=== PATIENT | male | born 1980 | race Caucasian/White ===

== ENCOUNTER → 2019-04-09 | Outpatient (CLI) | payer OTHER ==
--- NOTE | 2019-04-09 18:08 | EST ---
EXERCISE STRESS DATE OF STUDY: 04/09/2019 AGE: 38 SEX: Male. HT: 70 WT: 240 PROTOCOL: Carter STAGE: 4 DURATION OF EXERCISE: 10:00 HEART RATE REST: 65 BLOOD PRESSURE REST: 130/96 MAXIMUM HEART RATE ACHIEVED: 156 MAXIMUM BLOOD PRESSURE: 162/78 85% MPHR: 154 100% MPHR: 181 METS: 11.7 INDICATIONS: Chest pain. CLINICAL INFORMATION: STRESS DATA: Pre-testing physical examination showed heart rate of 60, blood pressure 130/96 mmHg. Baseline EKG showed sinus rhythm. The patient exercised on the treadmill per Carter protocol for a total of 10 minutes and achieved 12 METS. Max heart rate was 156, which is about 86% of maximum predicted heart rate. Maximum blood pressure was 162/78 mmHg. Clinically the patient did not have any symptoms of chest pain or discomfort, and the EKG did not show any significant ST or T-wave abnormalities concerning for ischemia. CONCLUSION: 1. Excellent exercise tolerance. 2. Normal EKG in response to exercise. 3. Essentially normal stress test for the patient. MMODL / IJN: [id number] /
== END | disposition home or self-care (01) ==
LOC: RADNMMAIN 08:45
PROVIDERS: ATTEND Family Medicine
DX: R07.89 Other chest pain (principal)
CPT/HCPCS: 93017

== ENCOUNTER 2021-11-27 15:04 | Emergency (ER) | payer BC, OTHER ==
[2021-11-27 15:53] VITALS: RESP 18; TEMP 98.3
--- NOTE | 2021-11-27 18:23 | ED ---
URI HPI - General Chief Complaint: Upper Respiratory Infection Stated Complaint: covid+,low oxygen Time Seen by Provider: 11/27/21 17:31 Source: patient Mode of arrival: ambulatory Limitations: no limitations - History of Present Illness Initial Comments: 41 year-old male patient presents to the emergency department for evaluation of decreased oxygen saturation. He started having upper respiratory symptoms on and had a positive home COVID test on Sunday. States that his oxygen saturation was decreasing to around 89% at home. His physician recommended he come in for further evaluation and possible antibody infusion. Patient states he has been having some shortness of breath. Reports cough. Denies any nausea, vomiting, or diarrhea. Denies any significant fever. He has been vaccinated and did receive a booster shot. Patient denies any recent rash, chest pain, abdominal pain, constipation, back pain, numbness, tingling, dizziness, weakn ess, hematuria, dysuria, urinary urgency, urinary frequency, headache, visual changes, or any other complaints. - Related Data Allergies Allergy/AdvReac Type Severity Reaction Status Date / Time No Known Allergies Allergy Verified 11/27/21 15:53 Review of Systems ROS Statement: Those systems with pertinent positive or pertinent negative responses have been documented in the HPI. ROS Other: All systems not noted in ROS Statement are negative. Past Medical History Past Medical History: Hypertension History of Any Multi-Drug Resistant Organisms: None Reported Additional Past Surgical History / Comment(s): tongue reattachment Past Psychological History: No Psychological Hx Reported Smoking Status: Current every day smoker Past Alcohol Use History: None Reported Past Drug Use History: None Reported General Exam Limitations: no limitations General appearance: alert, in no apparent distress, other (This is a well- developed, well-nourished adult male in no acute distress.) Eye exam: Present: normal appearance, PERRL, EOMI. Absent: scleral icterus, conjunctival injection, periorbital swelling ENT exam: Present: normal exam, normal oropharynx, mucous membranes moist Respiratory exam: Present: normal lung sounds bilaterally. Absent: respiratory distress, wheezes, rales, rhonchi, stridor Cardiovascular Exam: Present: regular rate, normal rhythm, normal heart sounds. Absent: systolic murmur, diastolic murmur, rubs, gallop, clicks GI/Abdominal exam: Present: soft, normal bowel sounds. Absent: distended, tenderness, guarding, rebound, rigid Neurological exam: Present: alert, oriented X3, CN II-XII intact Psychiatric exam: Present: normal affect, normal mood Skin exam: Present: warm, dry, intact, normal color. Absent: rash Course Vital Signs 11/27/21 11/27/21 15:45 18:27 Temperature 98.3 F Pulse Rate 69 Respiratory 18 18 Rate Blood Pressure 143/95 O2 Sat by Pulse 98 Oximetry Medical Decision Making - Medical Decision Making 41-year-old male patient presents to the emergency department today for evaluation of low oxygen saturation after testing positive for COVID-19 on Sunday. Physical examination is unremarkable. Lungs are clear to auscultation with good air movement. Oxygen saturation here is 97-98% on room air. He did meet criteria Dr. White monoclonal antibody infusion. Tolerated the infusion without difficulty. He is instructed to follow-up with his primary care physician for recheck in 1-2 days. He verbalizes understanding and is discharged in stable condition. My attenidng is Dr. Kaminski. - Lab Data Lab Results 11/27/21 Range/Units 18:27 Coronavirus (PCR) Detected A (Not Detectd) - Radiology Data Radiology results: report reviewed, image reviewed One view x-ray of the chest is obtained. Report was reviewed in its entirety. Impression by Dr. Genao shows no acute process. Disposition Clinical Impression: COVID-19 Disposition: HOME SELF-CARE Condition: Good Instructions (If sedation given, give patient instructions): Coronavirus Disease 2019 (COVID-19) Additional Instructions: Tips to help you feel better: -Maintain adequate fluid intake - especially water. -Rest, you are healing your body will require extra sleep. -Eat even if you do not feel like it - broth, jello, toast are fine if you cannot eat full meals. -Take tylenol and motrin alternating (if you have no allergies or have not been instructed to avoid these medications) to help with body aches and fevers. -Obtain over the counter vitamin C, zinc, and vitamin D3. -Take medications as prescribed. Follow-up with your primary care physician for recheck in 1-2 days. Return for any new, worsening, or concerning symptoms. Is patient prescribed a controlled substance at d/c from ED?: No Referrals: Matthew Adler, DO [Primary Care Provider] - 1-2 days
[2021-11-27] MEDS ORDERED: BAMLANIVIMAB (EUA) 700 MG, ETESEVIMAB (EUA) 1,400 MG in SODIUM CHLORIDE 0.9% 100 ML IVPB ONE (19:30)
--- NOTE | 2021-11-27 19:40 | XR ---
EXAMINATION TYPE: XR chest 1V DATE OF EXAM: 11/27/2021 COMPARISON: NONE HISTORY: Cough and hypoxia. TECHNIQUE: Single frontal view of the chest is obtained. FINDINGS: There is no focal air space opacity, pleural effusion, or pneumothorax seen. The cardiac silhouette size is within normal limits. The osseous structures are intact. IMPRESSION: No acute process.
[2021-11-27] MEDS ORDERED: SODIUM CHLORIDE 0.9% 50 ML IVPB ONE (20:00)
[2021-11-27 22:30] VITALS: BP 126/98; PULSE 78
== END 2021-11-27 22:32 | disposition home or self-care (01) ==
LOC: EC 15:04
DX: U07.1 COVID-19 (principal); I10 Essential (primary) hypertension; F17.200 Nicotine dependence, unspecified, uncomplicated
CPT/HCPCS: 99285; M0245; 71045; 87635

== ENCOUNTER → 2025-03-27 | Outpatient (CLI) | payer BC ==
--- NOTE | 2025-03-27 09:20 | XR ---
EXAMINATION TYPE: XR knee complete RT DATE OF EXAM: 03/27/2025 9:17 AM COMPARISON: None CLINICAL INDICATION: Male, 44 years old with history of M25.561 RIGHT KNEE PAIN; PHH, pain TECHNIQUE: 3 views FINDINGS: Extensor mechanism is intact. No acute fracture, subluxation, dislocation. No joint effusio n. IMPRESSION: No acute osseous abnormality seen. If pain persists, consider MRI. [facility], Workstation: [facility], 03/27/2025 9:18 AM
[2025-03-27 15:14] LABS: Basophils # (A) 0.08 X 10*3/uL (0.00-0.10); Basophils % (A) 1.3 %; Eosinophils # (A) 0.18 X 10*3/uL (0.04-0.35); Eosinophils % (A) 2.8 %; HGB 15.8 g/dL (13.0-17.0); Lymphocytes # (A) 1.83 X 10*3/uL (0.90-5.00); Lymphocytes % (A) 28.9 %; MCH 31.2 pg (27.0-32.0); MCHC 32.9 g/dL (32.0-37.0); MCV 94.9 FL (80.0-97.0); Mean Platelet Volume 10.6 FL (9.5-12.2); Monocytes # (A) 0.83 X 10*3/uL (0.20-1.00); Monocytes % (A) 13.1 %; NRBC Per 100 WBC 0 X 10*3/uL (0.00-0.01); Neutrophils # (A) 3.38 X 10*3/uL (1.80-7.70); Neutrophils % (A) 53.3 %; Platelet Count 258 X 10*3/uL (140-440); RBC 5.06 X 10*6/uL (4.40-5.60); RDW 11.9 % (11.5-14.5); WBC 6.34 X 10*3/uL (4.50-10.00)
[2025-03-27 15:39] LABS: ALT 28 U/L (10-49); AST 19 U/L (14-35); Albumin 4.2 g/dL (3.8-4.9); Albumin/Globulin Ratio 1.62 Ratio (1.60-3.17); Alkaline Phosphatase 87 U/L (41-126); Blood Urea Nitrogen 21.6 mg/dL (9.0-27.0); Calcium 9.3 mg/dL (8.7-10.3); Carbon Dioxide 23.5 mmol/L (21.6-31.8); Chloride 103 mmol/L (96-109); Chol/HDL Ratio 5.67 Ratio; Globulin 2.6 g/dL (1.6-3.3); Glucose 87 mg/dL (70-110); LDL Cholesterol,Calculated 124.8 mg/dL (0.0-131.0); Potassium 4.1 mmol/L (3.5-5.5); Prostate Specific Antigen 0.38 ng/mL (0.000-2.500); Sodium 139 mmol/L (135-145); T4, Free (Free Thyroxine) 1.02 ng/dL (0.80-1.80); Total Bilirubin 0.7 mg/dL (0.3-1.2); Total Protein 6.8 g/dL (6.2-8.2)
== END | disposition home or self-care (01) ==
LOC: RADXRMAIN 08:48
PROVIDERS: ATTEND Family Medicine
DX: Z12.5 Encounter for screening for malignant neoplasm of prostate (principal); M25.561 Pain in right knee; I10 Essential (primary) hypertension
CPT/HCPCS: 80053; 80061; 84153; 84439; 84443; 84481; 85025